=== PATIENT | male | born 1950 | race Caucasian/White ===

== ENCOUNTER 2022-10-10 18:09 | Emergency (ER) | payer MEDICARE, OTHER, SELFPAY ==
[2022-10-10 18:13] VITALS: BP 152/85; PULSE 79; RESP 14; TEMP 37.1; O2SAT 98; BMI 27.2
--- NOTE | 2022-10-10 18:23 | XR_ITS ---
[place] [id number] Patient Name: ALAINA ZALDIVAR MRN: [id number] date: 1950 Sex: M Assigned Patient Location: ER Current Patient Location: ED.MAIN Accession/Order Number: [id number] Exam Date: 10/10/2022 18:30 Report Date: 10/10/2022 19:03 At the request of: JAVON FARRIS Procedure: XR elbow RT min 3V EXAM: XR elbow RT min 3V HISTORY: Pain following fall COMPARISON: None. TECHNIQUE: 3 views FINDINGS: IMPRESSION: Minimally displaced fracture of the radial neck. Adjacent soft tissue edema. Small elbow effusion. Joint spaces are normal. Electronically authenticated by: ISABELA PERDOMO Date: 10/10/2022 19:03
--- NOTE | 2022-10-10 19:20 | ED_ITS ---
HPI - Extremity Injury (Upper) General Chief Complaint: Extremity Injury, Upper Stated Complaint: RT ELBOW INJURY Time Seen by Provider: 10/10/22 19:15 Source: patient Mode of arrival: walk-in Limitations: no limitations History of Present Illness HPI narrative: right elbow injury. playing pickle ball in his driveway and fell onto his right elbow. Has pain of the elbow. Also scraped his right knee but only minor pain here. denies other injury. Denies numbness or extremity weakness complaint: injury to: Reports right and elbow Related Data Allergies Allergy/AdvReac Type Severity Reaction Status Date / Time No Known Drug Allergies Allergy Verified 10/10/22 18:13 Review of Systems ROS Status of ROS 10 or more systems reviewed and unremarkable except as noted in history and below Exam Constitutional Vital Signs - 24 hr 10/10/22 18:13 10/10/22 18:20 Temperature 98.7 F Pulse Rate [Monitor] 79 Respiratory Rate 14 Blood Pressure [Left Arm] 152/85 H Pulse Oximetry 98 Oxygen Delivery Method Room Air Room Air Common normals: no apparent distress, average body habitus, oriented x3, no limitations, healthy appearing and alert HENMT Common normals: normocephalic and head/scalp atraumatic Eye Common normals: PERRL, EOMs intact bilaterally and conjunctivae normal Respiratory Common normals: normal respiratory effort, no use of accessory muscles and clear to auscultation bilaterally Cardio Common normals: regular rate, regular rhythm, S1 normal heart sound and S2 normal heart sound Extremity Other: abrasion right elbow. minor swelling . no deformity. limited ROM due to pain minor abrasion right knee. minor swelling. FROM . Neuro Common normals: oriented x3, CN's II-XII intact bilaterally, moves all extremities, no focal motor deficits and no sensory deficits noted Psych Appearance: grossly normal Course Vital Signs Vital signs: Vital Signs Temperature 98.7 F 10/10/22 18:13 Pulse Rate 79 10/10/22 18:13 Respiratory Rate 14 10/10/22 18:13 Blood Pressure 152/85 H 10/10/22 18:13 Pulse Oximetry 98 10/10/22 18:13 Oxygen Delivery Method Room Air 10/10/22 18:13 Temperature 98.7 F 10/10/22 18:13 Pulse Rate 79 10/10/22 18:13 Respiratory Rate 14 10/10/22 18:13 Blood Pressure 152/85 H 10/10/22 18:13 Pulse Oximetry 98 10/10/22 18:13 Oxygen Delivery Method Room Air 10/10/22 18:20 MDM - Extremity Injury (Upper) MDM Narrative Medical decision making narrative: patient fell in his driveway playing pickle ball. fell onto his right elbow and knee. Minor abrasions right knee but denies any significant pain and readily demonstrates FROM of the right knee. Also has minor abrasion right elbow and minor swelling. No deformity. Xray with fracture radial neck. Patient placed in a splint and sling and discharged home to follow up with orthopedics Discharge Plan Discharge Chief Complaint: Extremity Injury, Upper Clinical Impression: Closed fracture of right elbow, Abrasion of knee, right Patient Disposition: Home, Self-Care Instructions: Elbow Fracture (ED), Abrasion (ED) Additional Instructions: follow up with orthopedist Dr Villanueva next week Stand Alone Forms: Portal Instructions Referrals: Florentin Rodriguez MD [Primary Care Provider] - 1 week Procedures ED Procedure Instructions Procedures Procedures: right elbow posterior splint. size 4 fiber glass material. Posterior elbow splint fashioned on left elbow at 90 degrees. N/V post procedure WNL. no compli cations
--- NOTE | 2022-10-10 20:07 | PC.NURSE ---
called [facility] [place] pharmacy to have med pushed over
[2022-10-10] MEDS: ADACEL DIPH,PERTUSS(ACELL),TET VAC/PF 0.5 ML ADULT SYRINGE IM (20:14)
[2022-10-10] MEDS: HYDROCODONE/ACETAMINOPHEN 5-325 MG TABLET 4 TAB PO (20:14)
--- NOTE | 2022-10-10 20:29 | PC.NURSE ---
right knee abrasion cleansed and dressing in place
== END 2022-10-10 20:31 | disposition home or self-care (01) ==
PROVIDERS: Emergency Provider Internal Medicine; PCP Family Medicine
DX: S52.131A Displaced fracture of neck of right radius, initial encounter for closed fracture (principal); S80.211A Abrasion, right knee, initial encounter; W19.XXXA Unspecified fall, initial encounter; Y93.73 Activity, racquet and hand sports; Z23 Encounter for immunization
CPT/HCPCS: 29105; 73080; 90471; 90715; 99284

== ENCOUNTER 2022-10-27 14:51 | Outpatient (OUT) | payer MEDICARE, OTHER, SELFPAY ==
--- NOTE | 2022-10-27 15:00 | US_ITS ---
[place] [id number] Patient Name: ALAINA ZALDIVAR MRN: [id number] date: 1950 Sex: M Assigned Patient Location: RAD Current Patient Location: RAD Accession/Order Number: [id number] Exam Date: 10/27/2022 15:15 Report Date: 10/27/2022 18:35 At the request of: DAJA DUNN Procedure: US venous doppler LE BI EXAMINATION: US venous doppler LE BI HISTORY: Pain In Left Leg M79.605 COMPARISON: No relevant comparison available. TECHNIQUE: Grayscale, color and Doppler ultrasound FINDINGS: Region: Bilateral legs Thrombus: None Flow: Normal Augmentation: Normal Compressibility: Normal Other mild amount of atherosclerosis identified in the mid to distal bilateral small saphenous veins US/US venous doppler LE BI IMPRESSION: No deep or superficial vein thrombus in the visualized veins *Exam performed in accordance with [facility] practice guidelines- Peripheral venous ultrasound, July 06, 2009. Electronically authenticated by: ISABELA DELUNA Date: 10/27/2022 18:35
== END 2022-10-27 14:52 | disposition home or self-care (01) ==
LOC: RAD 14:54
PROVIDERS: PCP Family Medicine; Visit Provider Family Medicine
DX: M79.605 Pain in left leg (principal)
CPT/HCPCS: 93970